=== PATIENT | male | born 2005 | race Caucasian/White ===

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

== ENCOUNTER 2024-07-24 14:23 | Emergency (ER) | payer BC ==
[~2024-07-24] VITALS: Ht 175.3 cm; Wt 74.5 kg
--- NOTE | 2024-07-24 14:36 | ELECTROCARDIOGRAPH REPORT ---
[facility] Test Date: 2024-07-24 Test Time: 14:29:36 Pat Name: ИВАН WHITMORE Department: EMERGENCY ROOM Room: Gender: M Process Project Engineer: : 2005 Requested By: ISMA GUZMÁN Order Number: [id number] Reading MD: Dr. Dedrick De Anda Measurements Intervals [place] Rate: 100 P: 61 GA: 134 QRS: 74 QRSD: 96 T: 49 QT: 305 QTc: 394 Interpretive Statements Sinus tachycardia Electronically Signed On 07-24-2024 15:47:[address] Dedrick De Anda Please click the below link to view image of tracing.
--- NOTE | 2024-07-24 14:37 | Physician Documentation ---
History of Present Illness ~ Chief Complaint: Palpitations Stated Complaint: ABNORMAL HEART RATE Time Seen by MD: 15:55 OK to notify your PCP?: Yes Primary Medical Doctor: [facility] Source: patient Mode of Arrival: POV Exam Limitations: no limitations HPI This is a 19-year-old male who comes in complaining of feeling like his heart is racing which began yesterday. The patient states that this has been an ongoing issue for him since he was young. He states that his heart use a race when he would play sports and sometimes when he lies resting he feels like his heart is beating out of his chest. He is not complaining of chest pain just palpitation s. He denies shortness of breath. He denies any known thyroid issues. Medication Reconciliation Allergies: Uncoded Allergies: PENICILLIN (Allergy, Mild, HIVES, 01/30/22) Past Medical History Past Medical History: No Pertinent History Past Surgical History: no surgical history Drug Use: none Lives In: Home Review of Systems Constitutional: Denies: chills, fever, weakness Eyes: Denies: pain, blurred vision ENT: Denies: ear pain, nose pain, throat pain, mouth pain Respiratory: Denies: cough, shortness of breath Cardiovascular: Denies: chest pain, palpitations Gastrointestinal: Denies: abdominal pain, nausea, vomiting Genitourinary: Denies: burning, dysuria Male Genitalia: Denies: penile discharge, testicular pain Neurological: Denies: headache, dizziness Musculoskeletal: Denies: pain, swelling Integumentary: Denies: rash, lesions Allergic/Immunologic: Denies: hives, itching Hematologic/Lymphatic: Denies: no symptoms reported Psychiatric: Denies: depression, anxiety Physical Exam Vital Signs: Temperature: 98.4, Heart Rate: 99, Respiratory Rate: 14, BP: 133/95, Pulse Oximetry: 98, Weight: 74.500 Pulse Oximetry Reflects: adequate oxygenation Physical Exam General: Awake and Alert, no acute distress. HEENT: Conjunctiva pink, Sclera clear, Mucus Membranes moist. Neck: Supple without masses and tenderness. Resp: Unlabored. Lungs clear to auscultation bilaterally. Heart: Regular Rate and rhythm, normal S1 and S2 without murmur, rub or gallop. Abdomen: Soft and non tender no organomegaly Extremities: No cyanosis,clubbing or edema. Skin: Warm and Dry. General Appearance: alert, WD/WN, no apparent distress Progress Results/Orders Results/Orders Vital Signs 07/24/24 07/24/24 07/24/24 14:27 15:32 15:37 Temp 98.4 Pulse 99 88 Resp 14 16 17 B/P (MAP) 133/95 126/86 (99) Pulse Ox 98 98 O2 Flow Rate 0 Laboratory Tests Test 07/24/24 14:52 White Blood Count 8.5 Red Blood Count 5.39 Hemoglobin 16.5 Hematocrit 47.5 Mean Corpuscular Volume 88.1 Mean Corpuscular Hemoglobin 30.6 Mean Corpuscular Hemoglobin Concent 34.8 Red Cell Distribution Width 13.7 Platelet Count 281 Mean Platelet Volume 7.4 Neutrophils (%) (Auto) 62.7 Lymphocytes (%) (Auto) 27.3 Monocytes (%) (Auto) 7.3 Eosinophils (%) (Auto) 2.5 Basophils (%) (Auto) 0.2 Neutrophils # (Auto) 5.3 Lymphocytes # (Auto) 2.3 Monocytes # (Auto) 0.6 Eosinophils # (Auto) 0.2 Basophils # (Auto) 0.0 CBC Comment Sodium Level 143 Potassium Level 4.1 Chloride Level 105 Carbon Dioxide Level 29.7 Anion Gap 8 Blood Urea Nitrogen 12 Creatinine 0.95 Estimated GFR/1.73 m2 > 90 BUN/Creatinine Ratio 12.6 Glucose Level 105 H Calcium Level 9.1 Magnesium Level 2.0 Total Bilirubin 0.6 Aspartate Amino Transf (AST/SGOT) 20 Alanine Aminotransferase (ALT/SGPT) 21 Alkaline Phosphatase 65 Troponin I High Sensitivity 6 Pro-B-Type Natriuretic Peptide < 30 Total Protein 7.8 Albumin 4.1 Globulin 3.7 Albumin/Globulin Ratio 1.1 Thyroid Stimulating Hormone (TSH) 1.79 Free Thyroxine 0.98 Chemistry Comments EKG/XRAY/CT/US/VASC/MRI EKG : Additional Comment EKG interpreted by myself today shows sinus tachycardia, with rate at 100 beats per minute, no sign of ischemia and no ST segment elevation, no axis deviation. Medical Decision Making Findings This is a 19-year-old male who comes in complaining of feeling like his heart is racing which began yesterday. The patient states that this has been an ongoing issue for him since he was young. He states that his heart use a race when he would play sports and sometimes when he lies resting he feels like his heart is beating out of his chest. He is not complaining of chest pain just palpitations. He denies shortness of breath. He denies any known thyroid issues. EKG and labs are all unremarkable. Shared decision-making utilized with the patient today. Patient will follow up with Cardiology as soon as possible for likely Holter monitor evaluation. Patient will return to ED with any worsening, concerning or changing symptoms. Additional Information Paroxysmal tachycardic. SVT. Palpitations. Atrial fibrillation. Electrolyte imbalance. Hyperthyroid Departure Disposition: HOME / SELF CARE / HOMELESS Impression: Primary Impression: Palpitations Condition: Improved Discharge Instructions: Palpitations, [id number] Additional Instructions: EKG and labs are all unremarkable. Shared decision-making utilized with the patient today. Patient will follow up with Cardiology as soon as possible for likely Holter monitor evaluation. Patient will return to ED with any worsening, concerning or changing symptoms. Referrals: NO PRIMARY CARE PROVIDER (PCP) Signature Scribe Signature: No scribe Attestation: No scribe ISMA GUZMÁN July 24, 2024 14:37 BEATRIZ GAMEZ July 24, 2024 16:11
--- NOTE | 2024-07-24 15:02 | RADIOLOGY REPORT ---
EXAM: DI CHEST,SINGLE VIEW Indication: CP Technique: Single frontal view of the chest was obtained Comparison: DI CHEST,SINGLE VIEW on DOS: 05/24/23 FINDINGS: Lines and Tubes: None Lungs: No focal consolidation. Pleura: No effusion. No pneumothorax. Cardiomediastinal contours: Unremarkable Bones: No acute osseous abnormality. IMPRESSION: No acute cardiopulmonary disease.
[2024-07-24 15:03] LABS: BASOPHILS % (AUTO) 0.2 % (0-1); EOSINOPHILS # (AUTO) 0.2 X10'3 (0-0.9); EOSINOPHILS % (AUTO) 2.5 % (0-6); HEMATOCRIT 47.5 % (42.0-52.0); HEMOGLOBIN 16.5 g/dl (14.0-17.9); LYMPHOCYTES # (AUTO) 2.3 X10'3 (1.1-4.8); LYMPHOCYTES % (AUTO) 27.3 % (21-51); MEAN CORPUSCULAR HEMOGLOBIN 30.6 PG (27.0-31.0); MEAN CORPUSCULAR HGB CONC 34.8 g/dL (33.0-36.5); MEAN CORPUSCULAR VOLUME 88.1 FL (78-98); MEAN PLATELET VOLUME 7.4 FL (7.4-10.4); MONOCYTES # (AUTO) 0.6 X10'3 (0-0.9); MONOCYTES % (AUTO) 7.3 % (2-12); NEUTROPHILS # (AUTO) 5.3 X10'3 (1.8-7.7); NEUTROPHILS % (AUTO) 62.7 % (42-75); PLATELET COUNT 281 X10'3 (140-440); RED BLOOD COUNT 5.39 X10'6 (4.70-6.10); RED CELL DISTRIBUTION WIDTH 13.7 % (11.5-14.5); WHITE BLOOD COUNT 8.5 X10'3 (4.5-11.0)
[2024-07-24 15:32] LABS: ALANINE AMINOTRANSFERASE 21 U/L (12-78); ALBUMIN 4.1 G/DL (3.4-5.0); ALBUMIN/GLOBULIN RATIO 1.1 (1.1-1.5); ALKALINE PHOSPHATASE 65 IU/L (20-180); ANION GAP 8 (8-16); ASPARTATE AMINO TRANSFERASE 20 U/L (10-37); BILIRUBIN,TOTAL 0.6 MG/DL (0.1-1.0); BLOOD UREA NITROGEN 12 MG/DL (7-18); CALCIUM 9.1 MG/DL (8.5-10.1); CHLORIDE 105 MMOL/L (99-107); GLUCOSE 105 MG/DL (70-104); POTASSIUM 4.1 MMOL/L (3.5-5.1); SODIUM 143 MMOL/L (135-145); TOTAL CARBON DIOXIDE 29.7 MMOL/L (24-32); TOTAL PROTEIN 7.8 G/DL (6.4-8.2)
[2024-07-24 15:38] LABS: FREE T4 (FREE THYROXINE) 0.98 NG/DL (0.73-1.40); PRO BRAIN NATRIURETIC PEPTIDE < 30 PG/ML (0-125); THYROID STIMULATING HORMONE 1.79 ulU/ml (0.34-4.50)
[2024-07-24 15:39] LABS: BUN/CREATININE RATIO 12.6 (10.0-20.0); CREATININE 0.95 MG/DL (0.60-1.10); eCRCL 124 ML/MIN; eGFR > 90 ML/MIN
[2024-07-24 16:18] VITALS: BP 118/80; PULSE 90; RESP 16; TEMP 98.4; O2SAT 98
== END 2024-07-24 16:19 | disposition home or self-care (01) ==
LOC: ER 14:23
DX: R00.2 Palpitations (principal)
CPT/HCPCS: 36415; 71045; 80053; 83735; 83880; 84439; 84443; 84484; 85025; 93005; 99285

== ENCOUNTER 2025-01-04 11:29 | Emergency (ER) | payer BC ==
[~2025-01-04] VITALS: Ht 175.3 cm; Wt 75.0 kg
[2025-01-04] MEDS: ibuprofen tablet 400 MG TABLET PO ONE (12:28)
[2025-01-04 12:39] LABS: STREP A SCREEN NEGATIVE (Neg)
[2025-01-04 12:52] VITALS: BP 120/82; PULSE 98; RESP 18; TEMP 100; O2SAT 98
--- NOTE | 2025-01-04 12:54 | Physician Documentation ---
History of Present Illness ~ Chief Complaint: Sore Throat Stated Complaint: SORE THROAT Time Seen by MD: 11:46 OK to notify your PCP?: Yes Primary Medical Doctor: [facility] Source: patient Mode of Arrival: POV Exam Limitations: no limitations HPI 19-year-old male presents for cold-like symptoms for the past 5 days. He reports having a sore throat which has been getting worse despite taking over- the-counter cold medication and Tylenol. He denies any cough. Pt has been having cold like symptoms for approximately 5 days. States that his sore throat has been getting worse, making it hard to swallow. Denies any shortness of breath, chest pain, nausea vomiting or diarrhea. Medication Reconciliation Allergies: Uncoded Allergies: PENICILLIN (Allergy, Mild, HIVES, 01/30/22) Past Medical History Past Medical History: No Pertinent History Past Surgical History: no surgical history Drug Use: none Lives In: Home Review of Systems All Other Systems at this time: Reviewed and Negative Physical Exam Vital Signs: RN Vital Signs have been reviewed: Yes, Temperature: 100.9, Sourc e: Oral, Heart Rate: 103, Respiratory Rate: 22, BP: 136/79, Pulse Oximetry: 98, Weight: 75.000 Oxygen Flow Rate: 0 Pulse Oximetry Reflects: adequate oxygenation Physical Exam General: Alert, no distress. HEENT: No injection, moist mucous membranes. Erythema to posterior pharynx, tonsils 1+, uvula midline, no exudates. Neck: Full range of motion. Anterior cervical lymphadenopathy. Respiratory: No respiratory distress, equal chest rise and fall. Lungs clear bilaterally Chest: No accessory muscle use. Cardiovascular: Regular rate and rhythm. Gastrointestinal: Nondistended. Extremities: Normal range of motion, no deformity. Neurologic: Oriented x4. Psychiatric: Normal mood and affect. Skin: Normal color, warm and dry. Progress Results/Orders Reviewed/noted all lab results: Yes Results/Orders Orders - PATTI RICE Cult Throat + R/O Beta Strep (01/04/25 12:39) Completed Orders - PATTI RICE Strep A Rapid (01/04/25 12:02) Ibuprofen Tablet (Motrin Tablet) (01/04/25 12:05) Medications Received in ER Medications (Trade) Dose Ordered Sig/Donovan Route PRN Reason Start Time Stop Time Status Last Admin Dose Admin (Motrin tablet) 400 mg ONCE ONCE PO 01/04/25 12:05 01/04/25 12:06 DC 01/04/25 12:28 400 MG Vital Signs 01/04/25 01/04/25 11:39 12:52 Temp 100.9 100.0 Pulse 103 98 Resp 22 18 B/P (MAP) 136/79 120/82 (95) Pulse Ox 98 98 O2 Flow Rate 0 0 Laboratory Tests Test 01/04/25 12:21 Group A Streptococcus Rapid Negative Medical Decision Making Additional information obtaine: family Findings He presents with and cold-like symptoms and a sore throat. Due to the lingering sore throat, I did a strep swab which was negative. I gave ibuprofen for discomfort. His physical exam was unremarkable except for some erythema to posterior pharynx. We discussed that this is a viral illness likely. He was given return instructions as well as follow up instructions. Ear Diff. Dx: Considerations: Include: Other Eye Diff. Dx: Considerations: Include: Other Nose Diff. Dx: Considerations: Include: Other Tooth Diff. Dx: Considerations: Include: Other Throat Diff Dx: Considerations: Include: Epiglottitis, Infection mononucleosis, Joshua's angina, Peritonsillar abscess, Peritonsillar cellulitis, Pharyngitis- strepococcal Departure Disposition: 01 HOME / SELF CARE / HOMELESS Impression: Primary Impression: Sore throat Condition: Stable Discharge Instructions: Sore Throat Additional Instructions: You can do warm salt water gargles as well as use [id number] pain medication to help with your sore throat. This is likely a viral illness which is self-limiting usually resolves within 7-10 days. Your throat swab was negative for strep throat so no antibiotics are indicated. Return back here for any new or worsening symptoms. Drink plenty of fluids and get lots of rest. Referrals: NO PRIMARY CARE PROVIDER (PCP) Education Educated: Patient Educated regarding: diagnosis, treatment, prognosis, need for follow up Additional Comment Medical Screen Exam This patient recieved a medical screening examination. After reviewing the individual's medical complaints with presenting symptoms and performing an appropriate physical examination, it was determined that no immediate life- threatening emergency medical condition is present. This individual is also not a women having contractions. Signature Scribe Signature: . Attestation: Scribed for Patti Rice Senior Financial Reporting Analyst by Patti Scales NP . 01/04/25 12:50 Parts of this note were created using [employer] voice recognition software program. While efforts were made to correct any mistakes made by this voice recognition software program, nonsensical phrases may remain in this note. In addition, there may be errors and syntax, grammar, content and spelling. PATTI RICE STEAM GENERATING POWERPLANT MECHANIC Jan 04, 2025 12:54
== END 2025-01-04 13:17 | disposition home or self-care (01) ==
LOC: ER 11:30
DX: J02.9 Acute pharyngitis, unspecified (principal)
CPT/HCPCS: 87081; 87880; 99283